=== PATIENT | female | born 1985 | race Caucasian/White ===

== ENCOUNTER 2021-04-25 09:13 | Outpatient (REF) | payer OTHER, SELFPAY ==
--- NOTE | ~2021-04-25 | CT_ITS ---
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 COMPARISON: None. TECHNIQUE: Test bolus sequences followed by intravenous administration 75 mL of Omnipaque 350 intravenous contrast. Helical imaging was performed in the axial plane from the skull base to the vertex. Delayed postcontrast imaging of the head was also performed. The data was processed at the apparatus engineering technologist workstation for generation of MIP sequences. Three-dimensional volume rendered reformatted images were also generated at an offline 3-D workstation. The degree of stenosis determined by NASCET criteria. This CT examination was performed using dose optimization techniques as appropriate, variously including the following: *Automated exposure control *Adjustment of mA and/or kV according to patient size (this includes techniques or standardized protocols for targeted exams where dose is matched to indication/reason for exam; i.e. extremities or head) *Use of iterative reconstruction technique DLP: 2362.00 mGy-cm FINDINGS: CT brain: Precontrast and postcontrast delayed views of the brain were obtained. Aguilar-white matter differentiation appears well maintained. There is no evidence for hemorrhage, extra-axial fluid collection, space-occupying process or mass effect. There is a 7 mm nonspecific focal patchy hypodensity in the subcortical right frontal white matter near the anterior convexity associated with a region of focal volume loss along the right superior frontal gyrus near the convexity, with a widened sulcus noted at this location with some small calcifications noted. This findings consistent with encephalomalacia which could be related to either a previous nonspecific insult or 2 a previous surgical procedure. There is associated deformity of the overlying frontal calvarium suggesting a previous procedure. The remainder the brain is normal in morphology and attenuation with no evidence for abnormal enhancement. The ventricular system is within normal limits with a normal variation in size difference between the lateral ventricles. No hydrocephalus. Remainder of the bony structures appear intact. Of the visualized orbital soft tissues structures and extracranial soft tissues are grossly unremarkable. CTA: The intracranial internal carotid arteries are patent and normal in caliber bilaterally. Some tortuosity of both carotid siphons are noted. Carotid terminus appears within normal limits bilaterally. The A1 and and A2 segments are patent and normal in caliber. The anterior communicating artery is diminutive but appears unremarkable. The M1 segments are bilaterally symmetric and are normal in caliber and smoothly contoured. The MCA bifurcations and M2 branches are within normal limits. The intradural vertebral arteries are patent, with the left being slightly dominant. The basilar artery is normal in caliber and configuration. Superior cerebellar and posterior cerebral arteries are patent and normal in caliber. No abnormal vascularity is identified in the region of the above-described right frontal lobe abnormality. Specifically, no evidence for arteriovenous malformation. Delayed views demonstrate no definite abnormal vascularity. No abnormal extracranial vascularity or arterialized veins. CT/CT angio head IMPRESSION: 1. Normal CT angiogram of the brain. Specifically, no evidence for aneurysm or arteriovenous malformation. 2. Focal parenchymal defect along the anterior aspect of the right superior temporal gyrus with some calcifications in this region and bony deformity of the overlying calvarium. Uncertain whether this relates to prior trauma or a previous surgical procedure. There is probable minimal parenchymal encephalomalacia adjacent to this. 3. Otherwise normal study.
[2021-04-25] MEDS: iohexoL 350 MG/ML 100 ML INFUS..BTL IV (11:37)
== END 2021-04-25 09:14 | disposition home or self-care (01) ==
LOC: HO.CT 09:13
PROVIDERS: PCP Internal Medicine; Visit Provider Psychiatry & Neurology Neurology
DX: Q28.2 Arteriovenous malformation of cerebral vessels (principal)
CPT/HCPCS: 70496; Q9967